=== PATIENT | female | born 1975 | race Caucasian/White ===

== ENCOUNTER → 2023-11-29 | Emergency (ER) | payer OTHER ==
[~2023-11-29] VITALS: Ht 175.3 cm; Wt 77.1 kg
[2023-11-29 22:36] LABS: BASOPHILS # (AUTO) 0.1 K/uL (0.0-0.2); BASOPHILS % (AUTO) 0.8 % (0.0-2.0); EOSINOPHILS # (AUTO) 0.2 K/uL (0.0-0.7); EOSINOPHILS % (AUTO) 2.2 % (0.0-6.0); HEMATOCRIT 35 % (33-45); HEMOGLOBIN 11.8 g/dL (11.5-14.8); LYMPHOCYTES # (AUTO) 2.1 K/uL (0.8-4.8); LYMPHOCYTES % (AUTO) 25.5 % (20.0-44.0); MEAN CORPUSCULAR HEMOGLOBIN 28 PG (26.0-33.0); MEAN CORPUSCULAR HGB CONC 33 g/dl (31.0-36.0); MEAN CORPUSCULAR VOLUME 84 fL (82-100); MONOCYTES # (AUTO) 0.5 K/uL (0.1-1.30); MONOCYTES % (AUTO) 6.4 % (2.0-12.0); NEUTROPHILS # (AUTO) 5.5 K/uL (1.8-8.9); NEUTROPHILS % (AUTO) 65.1 % (43.0-81.0); PLATELET COUNT (AUTO) 502 K/uL (150-450); RED CELL DISTRIBUTION WIDTH 16.7 % (11.5-15.0); WHITE BLOOD COUNT (AUTO) 8.4 K/uL (4.3-11.0)
[2023-11-29 22:41] LABS: CALCIUM, SERUM 9.3 mg/dL (8.5-10.1); CARBON DIOXIDE 22 mmol/L (21-32); CHLORIDE 107 mmol/L (98-107); CREATININE 0.8 mg/dL (0.6-1.3); GLUCOSE 92 mg/dL (74-106); POTASSIUM 3.5 mmol/L (3.5-5.1); SODIUM SERUM 140 mmol/L (136-145); UREA NITROGEN, BLOOD 11 mg/dL (7-18)
[2023-11-29 22:48] LABS: INR 0.96 (0.91-1.10); PARTIAL THROMBOPLASTIN TIME 27.2 SEC (24.3-34.3); PROTHROMBIN TIME 9.9 SECS (9.2-11.1)
[2023-11-29 22:52] LABS: ALANINE AMINOTRANSFERASE 22 U/L (12-78); ALBUMIN 3.4 g/dL (3.4-5.0); ALKALINE PHOSPHATASE 66 U/L (46-116); ASPARTATE AMINOTRANSFERASE 10 U/L (15-37); BILIRUBIN,DIRECT 0.1 mg/dL (0.0-0.2); BILIRUBIN,TOTAL 0.2 mg/dL (0.2-1.0); NT-PRO BNP 77 pg/mL (0-125); TOTAL PROTEIN, SERUM 7.6 g/dL (6.4-8.2)
[2023-11-29 23:22] VITALS: BP 138/78; TEMP 98.1; O2SAT 97
== END | disposition home or self-care (01) ==
LOC: ER 21:20
DX: R00.2 Palpitations (principal); F17.200 Nicotine dependence, unspecified, uncomplicated; F41.9 Anxiety disorder, unspecified
CPT/HCPCS: 36415; 71045-TC; 80048-TC; 80076-TC; 83880; 84484-TC; 85025-TC; 85730-TC